=== PATIENT | female | born 1975 | race Hispanic/Latino ===

== ENCOUNTER → 2017-09-04 | Outpatient (CLI) | payer BC ==
[~2017-09-04] MED LIST: ASPI-983 PO; IBUP-1780 PO; TOPI25TA10 PO
--- NOTE | 2017-09-04 14:24 | Diagnostic Imaging Report ---
Indication: Pain in the medial aspect of the left breast. Sonographic interrogation of the upper and inner aspect of the left breast at the area of patient's pain was performed. No sonographic abnormality is identified. No solid or cystic mass is detected. Impression: BI-RADS one No sonographic abnormality is identified. ACR BI-RADS Category 1: Negative. Dictated by: Dictated on workstation # [id number]
--- NOTE | 2017-09-04 19:38 | Diagnostic Imaging Report ---
INDICATION: Pain in the medial aspect of the left breast radiating to the nipple. No prior mammograms are available for comparison. This is a baseline study. TECHNIQUE: 2D and 3D bilateral diagnostic mammography was performed with computer-aided detection (CAD) system. FINDINGS: Scattered fibroglandular densities are identified bilaterally. No dominant mass or malignant appearing microcalcifications are seen. The axillae are unremarkable. Tiny nodules in the upper posterior left breast are seen consistent with tiny cysts. IMPRESSION: No mammographic features suspicious for malignancy are identified. Even so, directed sonographic interrogation of the area of the patient's pain in the medial left breast is recommended and will be performed today. ACR BI-RADS Category 0: Incomplete. (Needs additional imaging evaluation). Result letter will be mailed to the patient. Note: At least 10% of breast cancer is not imaged by mammography. Dictated by: Dictated on workstation # [id number]
== END ==
LOC: RAD 13:32
PROVIDERS: ATTEND Nurse Practitioner Family
DX: N64.4 Mastodynia (principal); R92.2 Inconclusive mammogram
CPT/HCPCS: 76642; 77066